=== PATIENT | female | born 1985 | race Caucasian/White ===

== ENCOUNTER 2018-01-18 19:37 | Inpatient (IN) | payer OTHER ==
[~2018-01-18] VITALS: Ht 160 cm; Wt 66.7 kg
[~2018-01-18 19:37] MED LIST: ADVIL MIGRAINE200 M1 PO; FLOVENT DISKU100 MCG INH; IBUPROFEN800 M1 PO; PERCOCET 5-3251 EACH PO; PRENATAL TABLE1 EAC2 PO
[2018-01-18 20:30] LABS: ABSOLUTE BASOPHIL COUNT 0 /CUMM (0.0-0.2); ABSOLUTE EOSINOPHIL COUNT 0.1 /CUMM (0.0-0.7); ABSOLUTE GRANULOCYTE CT 5.4 /CUMM (1.4-6.5); ABSOLUTE LYMPH COUNT 1.5 /CUMM (1.2-3.4); ABSOLUTE MONOCYTE COUNT 0.8 /CUMM (0.10-0.60); BASOPHIL % 0.6 % (0.0-2.0); EOSINOPHIL % 1.4 % (0-5); GRANULOCYTE % 68.8 % (42.2-75.2); HEMATOCRIT 33.3 % (37-47); MEAN CORPUSCULAR HGB 25.9 PG (27.0-31.0); MEAN CORPUSCULAR HGB CONC 33.2 G/DL (33.0-37.0); MEAN CORPUSCULAR VOLUME 77.8 FL (81.0-99.0); MEAN PLATELET VOLUME 9.1 FL (7.4-10.4); PLATELET COUNT 197 /CUMM (130-400); RBC DISTRIBUTION WIDTH 14.9 % (11.5-14.5); RED BLOOD CELL CT 4.28 /CUMM (4.20-5.40); WHITE BLOOD CELL COUNT 7.8 /CUMM (4.8-10.8)
--- NOTE | 2018-01-18 20:43 | History & Physical ---
General Information and HPI MD Statement: I have seen and personally examined CARLOS CONNELL and documented this H&P. The patient is a 32 year old female at 40 weeks and 0 days gestation who presented with a chief complaint of iol FOR CHOLESTASIS OF . Source of Information: patient, old records Exam Limitations: no limitations History of Present Illness: Pt requesting now with recient diagnosis of cholestasis of admitted for induction of labor. Allergies/Medications Allergies: Coded Allergies: prednisone (RASH/HEART RACING 06/15/17) Home Med list Fluticasone Propionate (Flovent Diskus) 100 MCG BLST.W.DEV 1 PUF INH BID TROUBLE BREATHING Ibuprofen (Advil Migraine) 200 MG CAPSULE 2 CAP PO PRN PAIN/INFLAMMATION ( Reported) Compliance With Home Meds: GOOD Past History dope edger History : 2 Para: 01 Last Menstrual Period: 04/13/2017 Estimated Delivery Date: 01/18/18 Past dope edger History: cholestasis Past Pregnancies Past Pregnancies: Date of Delivery: 09/09/15 Gestational Age: 38 Length of Labor: none Weight: 6#13oz Type of Delivery: Anesthesia: spinal Place of Delivery: [facility] Complications: none Medical History Neurological: NONE EENT: NONE Cardiovascular: NONE Respiratory: NONE Gastrointestinal: NONE Hepatic: NONE Renal: NONE Musculoskeletal: NONE Psychiatric: NONE Endocrine: NONE Blood Disorders: NONE Cancer(s): NONE NURSERY LABORER/Reproductive: NONE Surgical History Pertinent Surgical History: Past Family/Social History Psychosocial History Where do you live? Home Who Do You Live With? spouse Primary Language: Icelandic Living Will? unknown Power of Fire Alarm Mechanic/HCP? unknown Review of Systems Review of Systems Constitutional: Denies: chills, fever. EENTM: Denies: blurred vision, double vision, visual changes. Cardiovascular: Denies: chest pain. Respiratory: Denies: cough, short of breath. GI: Denies: abdominal pain, diarrhea, nausea, vomiting. Neurological/Psychological: Denies: anxiety, depressed. Exam & Diagnostic Data Last 24 Hrs of Vital Signs/I&O vss Obstetric Exam Wgt Gained During : 21# Pelvimetry: seems adequate Dilation (cm): 1 Effacement (%): 30 Station: -2 Membranes: intact Fluid: unknown Fundal Height (cm): 38 Multiple Gestation? No Contractions: none Infant #1 - FHR Baseline: 130 Category: 1 Estimated Weight: 3600 Presentation: vtx Patient for Induction? Yes Chaudhari Score Chaudhari Score Response Value Cervix Position: anterior 2 Cervix Consistency: medium 1 Cervix Effacement: 0-30% 0 Cervix Dilation: 1-2 cm 1 Cervix Station: -2 1 Total 5 Labs Blood Type & Rh: B pos Antibody Screen: neg Hct/Hgb & Platelets #1: 42.6/13.6/310 Hct/Hgb & Platelets #2: 38/11.3/274 Rubella: imm VDRL #1: nr VDRL #2: nr HbsAg: neg HIV #1: nr HIV #2 nr 1 Hr P Group B Strep: neg Initial Ultrasound: 07/12/17 12w 6d Anatomy Ultrasound: 09/08/17 [facility] normal Ultrasound for EFW: 12/14/17 35%tile Genetic Testing: negative Assessment/Plan Assessment/Plan: IUP at Term Desires with cholestasis. Plan induction of labor start with gant balloon ROM in AM As Ranked By This Provider Problem List: 1. Core Measures Venous Thromboembolism VTE Risk Factors / No Mechanical VTE Prophylaxis d/t LowRisk-No Interven Req'd No VTE Pharm Prophylaxis d/t LowRisk-No Interven Req'd Attending MD Review Statement Attending Statement Attending MD Statement: examined this patient, discussed with family, discussed w/nursing
[2018-01-19] MEDS ORDERED: VALTREX500 M1 PO (07:28)
[2018-01-19] MEDS ORDERED: PRENATABS RX T1 EACH PO (08:58)
[2018-01-19] MEDS ORDERED: PULMICORT FLE180 MC1 INH (08:58)
--- NOTE | 2018-01-19 10:11 | PN- OBGYN ---
Surgical Brief Attending Note Brief Attending Note: pt comfortable, slept overnight afeb, v/ss fht 120s mod variability +acc toco rare ctx sve 350/-3, intact gant balloon in vagina, removed a/p p1 40+1 wks, prev c/s, desires , IOL for cholestasis of preg, s/p balloon, and maternal status reassuring. GBS neg. -start pitocin - patient understands and accepts theoretical increased risk of uterine rupture with use of pitocin and agrees to plan -will AROM once vtx descends -cont monitoring
--- NOTE | 2018-01-19 14:12 | PN- OBGYN ---
Surgical Brief Attending Note Brief Attending Note: pt w/ mild cramps afeb, bp 80/50 fht 120s moderate variability +acc no dec toco q 3-6 pit@ 8mu sve 3 / 50 / -2, AROM, clr -p1 40 wks IOL for cholestasis, GBS neg, s/p arom, on pit, and maternal status reassuring -cont curent mgmt
--- NOTE | 2018-01-19 16:12 | PN- OBGYN ---
Surgical Brief Attending Note Brief Attending Note: pt comfortable w/ epidural afeb, v/ss fht 120s moderate variability +acc no dec toco q 2-3 pit @8mu sve /-2 -cont current mgmt -titrate pit per protocol
--- NOTE | 2018-01-19 21:41 | PN- OBGYN ---
Surgical Brief Attending Note Brief Attending Note: late entry pt comfortable afeb, v/ss fht 120 mod variability +acc no dec toco q 2-3 sve fd / +2 pit@10 mu -begin pushing when pt has sensation to push -decrease epidural if needed
--- NOTE | 2018-01-19 22:53 | Labor & Delivery Summary ---
Delivery Summary Vaginal Delivery: Vaginal: spontaneous : : yes Episiotomy/Lacerations: Type: 1st deg Repair: 3-0 seven Anesthesia: epidural Placenta: Placenta: spontanteous, normal, 3 vessel, nuchal cord (x_) (1) Anesthesia: block Apgars - 1 Min: 9 Apgars - 5 Min: 9 Additional Comments: Pt FD / +2 and pushing w/ epidural. Controlled of live female, apg 01/09. Head del over perineum from JOURDAN. Nuchal x 1 reduced. Mouth and nose bulb suctioned. Body del w/o difficulty. Baby to mom's chest. Cord clamped and cut. 3vc plac del spont intact. 1st deg lac repaired usual fashion 3-0 seven. Good hemostasis. Pt edwin well. Fundus contracted. EBL 350cc.
[2018-01-20 03:38] VITALS: BP 96/58
[2018-01-20 09:25] LABS: ABSOLUTE BASOPHIL COUNT 0 /CUMM (0.0-0.2); ABSOLUTE EOSINOPHIL COUNT 0 /CUMM (0.0-0.7); ABSOLUTE LYMPH COUNT 1.4 /CUMM (1.2-3.4)
[2018-01-20 09:45] LABS: ABSOLUTE GRANULOCYTE CT 11.1 /CUMM (1.4-6.5); ABSOLUTE MONOCYTE COUNT 1.2 /CUMM (0.10-0.60); BASOPHIL % 0 % (0.0-2.0); EOSINOPHIL % 0.1 % (0-5); MEAN CORPUSCULAR HGB CONC 32.9 G/DL (33.0-37.0); MEAN CORPUSCULAR VOLUME 79.3 FL (81.0-99.0); MEAN PLATELET VOLUME 9.5 FL (7.4-10.4); PLATELET COUNT 162 /CUMM (130-400); RBC DISTRIBUTION WIDTH 14.9 % (11.5-14.5)
[2018-01-20 09:53] LABS: HEMATOCRIT 24.9 % (37-47); RED BLOOD CELL CT 3.14 /CUMM (4.20-5.40); WHITE BLOOD CELL COUNT 13.7 /CUMM (4.8-10.8)
--- NOTE | 2018-01-20 14:56 | PN- Post Delivery/GYN ---
Subjective Subjective: C/O band like BLANCA Review of Systems Constitutional: Denies: chills, fever. EENTM: Denies: blurred vision, double vision, visual changes. Cardiovascular: Denies: chest pain, palpitations. Respiratory: Denies: cough. Gastrointestinal: Denies: diarrhea, nausea, vomiting. Neurological/Psychological: Reports: headache. Denies: anxiety, depressed. Objective Last 24 Hrs of Vital Signs/I&O vss Vital Signs Date Time Temp Pulse Resp B/P B/P Pulse O2 O2 Flow FiO2 Mean Ox Delivery Rate 01/20 0338 96/58 Physical Exam General Appearance Alert, Oriented X3, Cooperative, No Acute Distress HEENT Atraumatic, EOMI Neck Supple Cardiovascular Regular Rate Lungs Clear to Auscultation Abdomen fundus firm Pelvic (FEMALE) lochia serosanganous Current Medications: Current Medications Sig/Constance Start time Last Medication Dose Route Stop Time Status Admin Acetaminophen 0 .STK-MED ONE 01/20 1321 DC PO Acetaminophen 650 MG Q4P PRN 01/19 2300 AC 01/20 PO 1322 Budesonide/ 2 PUF BID 01/19 1100 AC 01/19 Formoterol Fumarate INH 1344 Butorphanol Tartrate 0 .STK-MED ONE 01/20 0407 DC .ROUTE Butorphanol Tartrate 1 MG Q4P PRN 01/18 204 AC 01/20 IV 0415 Butorphanol Tartrate 1 MG Q4P PRN 01/18 204 AC 01/19 IM 1423 Butorphanol Tartrate 2 MG Q4P PRN 01/18 204 AC IV Butorphanol Tartrate 2 MG Q4P PRN 01/18 204 AC IM Chloroprocaine HCl 0 .STK-MED ONE 01/19 2125 DC .ROUTE Docusate Sodium 100 MG BID PRN 01/19 2300 AC PO Hydroxyzine HCl 100 MG AT BEDTIME NEED.. 01/18 204 AC 01/19 PO 0251 Ibuprofen 0 .STK-MED ONE 01/20 1321 DC PO Ibuprofen 0 .STK-MED ONE 01/20 0824 DC PO Ibuprofen 800 MG Q6P PRN 01/19 2300 AC 01/20 PO 1402 Ibuprofen 0 .STK-MED ONE 01/19 2253 DC PO Lactated Ringer's 1,000 ML Q8H 01/18 1945 DC 01/19 IV 1515 Oxytocin 20 UNITS ONCE ONE 01/20 0515 DC 01/20 Lactated Ringer's 1,000 ML IV 01/20 1014 0415 Oxytocin 30 UNITS PER PROTOCL 01/19 1045 AC 01/19 Lactated Ringer's 500 ML IV 1037 Last 24 Hrs of Labs/Gagan: Laboratory Tests 01/20/18 0630: CBC w Diff NO MAN DIFF REQ, RBC 3.14 L, MCV 79.3 L, MCH 26.0 L, MCHC 32.9 L, RDW 14.9 H, MPV 9.5, Gran % 81.0 H, Lymphocytes % 10.4 L, Monocytes % 8.5, Eosinophils % 0.1, Basophils % 0, Absolute Granulocytes 11.1 H, Absolute Lymphocytes 1.4, Absolute Monocytes 1.2 H, Absolute Eosinophils 0, Absolute Basophils 0 Microbiology 01/19 1605 URINE ROUT: Urine Culture - RES Assessment/Plan Assessment/Plan had heavy lochia overnight now its light Problem List: 1. Attending MD Review Statement Attending Statement Attending MD Statement: examined this patient, discussed with family, discussed with nursing
--- NOTE | 2018-01-21 09:02 | PN- OBGYN ---
Surgical Brief Attending Note Brief Attending Note: PPD#2 pt is resting in bed, no complaints, denies dizziness, headaches improved. tolerate diet, void without difficulties, ambulating well PE: VSS CV RRR Lungs: CTS B/L Abdomen: soft, nontender, uterus firm , fundus below umbilicus, muld lochia. Ext: DCT (-) A/P: 32 yo, s/p , PPD32 1. encourage ambulation and 2.H/H 8.3/25.5( stable compare to yesterday. 3. will d/c home, f/u in office in 2 wks and 6 wks. discharge instructions given , she understand.
[2018-01-21] MEDS ORDERED: IBUPROFEN800 M1 PO (09:03)
[2018-01-21 11:07] LABS: ABSOLUTE BASOPHIL COUNT 0 /CUMM (0.0-0.2); ABSOLUTE EOSINOPHIL COUNT 0.2 /CUMM (0.0-0.7); ABSOLUTE GRANULOCYTE CT 7.9 /CUMM (1.4-6.5); ABSOLUTE LYMPH COUNT 0.9 /CUMM (1.2-3.4); ABSOLUTE MONOCYTE COUNT 0.5 /CUMM (0.10-0.60); BASOPHIL % 0.4 % (0.0-2.0); EOSINOPHIL % 1.6 % (0-5); GRANULOCYTE % 82.9 % (42.2-75.2); HEMATOCRIT 25.5 % (37-47); MEAN CORPUSCULAR HGB 25.9 PG (27.0-31.0); MEAN CORPUSCULAR HGB CONC 32.6 G/DL (33.0-37.0); MEAN CORPUSCULAR VOLUME 79.3 FL (81.0-99.0); MEAN PLATELET VOLUME 9.7 FL (7.4-10.4); PLATELET COUNT 192 /CUMM (130-400); RBC DISTRIBUTION WIDTH 15.4 % (11.5-14.5); RED BLOOD CELL CT 3.22 /CUMM (4.20-5.40); WHITE BLOOD CELL COUNT 9.6 /CUMM (4.8-10.8)
== END 2018-01-21 12:50 | DRG 775 ==
LOC: GNO 19:37
PROVIDERS: Obstetrics & Gynecology
PROC: 10E0XZZ Delivery of Products of Conception, External Approach (ICD-10-PCS; principal; 2018-01-19)
PROC: 0HQ9XZZ Repair Perineum Skin, External Approach (ICD-10-PCS; principal; 2018-01-19)
DX: O70.0 First degree perineal laceration during delivery (principal); K83.1 Obstruction of bile duct; O26.62 Liver and biliary tract disorders in childbirth; O69.81X0 Labor and delivery complicated by cord around neck, without compression, not applicable or unspecified; O34.211 Maternal care for low transverse scar from previous cesarean delivery; N85.8 Other specified noninflammatory disorders of uterus; Z3A.40 40 weeks gestation of pregnancy; Z37.0 Single live birth
CPT/HCPCS: GNOP; 36415; 81003; 86920; 87086; J3490; J7120